=== PATIENT | male | born 1940 | race Caucasian/White ===

== ENCOUNTER → 2016-08-16 | Outpatient (CLI) | payer MEDICARE, BC ==
[~2016-08-16] MED LIST: ASPIRIN EC81 MG PO; CARDURA8 MG PO; CPAP INH; LIPITOR40 MG PO; METFORMIN HCL500 MG PO; PRINIVIL (ZESTRI5 MG PO; PROTONIX40 MG PO
== END | disposition disaster alternative care site (69) ==
LOC: LGSMG 09:48
DX: I25.10 Atherosclerotic heart disease of native coronary artery without angina pectoris (principal); E11.65 Type 2 diabetes mellitus with hyperglycemia; I10 Essential (primary) hypertension

== ENCOUNTER → 2016-08-26 | Outpatient (CLI) | payer MEDICARE, BC ==
--- NOTE | ~2016-08-26 | ESTC ---
Cardiac Perfusion Imaging Demographics Patient Name MIQUEL Jolley Gender Male Patient Number [id number] Race Visit Number [id number] Ethnicity [employer] ID Room Number Accession Number [id number] Height 65 inches Date of 1940 Weight 210 pounds A Interpreting Pablo Villagomez Date of study 08/26/2016 Physician Mustapha Barry MD Supervising /MLP Rodriguez CARTY Technologist Herbert Estrada Ordering Physician Stress hvac operations technician Stress ECG Reading [facility] Nurse Sarah Blackman Physician A RN The procedure was explained in detail to the patient. Risks, complications and alternative treatments were reviewed. Written consent was obtained. Medications Reviewed with Patient prior to Procedure. Procedure Procedure Type: Nuclear Stress Test:Pharmacological, Cardiolite Stress Test Procedure Start time: 08/26/2016 09:00 Indications: History of CAD and Angina. Risk Factors The patient risk factors include:prior PCI;cerebrovascular disease, family history of premature CAD, orally-treated diabetes mellitus and prior GA . Conclusions Summary This nuclear part of stress was assigned today for me to read. Impression ECG portion of the lexiscan stress test is clinically negative for ischemia by diagnostic criteria. Myocardial perfusion imaging is mildly abnormal. The images reveal a mostly fixed defect in the entire inferior wall suggestive of soft tissue attenuation. No evidence of convincing ischemia. Inferior wall thickens well on functional analysis. Overall left ventricular systolic function was normal. Calculated LVEF is 64% and TID ratio is 1.09. Stress Protocols Resting ECG Normal sinus rhythm. Pre-stress physical exam: Patient assessed by Dr Shah prior to testing. Stress Protocol:Pharmacologic Predicted HR: 145 bpm ECG Findings No ECG changes suggestive of ischemia. Arrhythmias No rhythm abnormality. Symptoms No symptoms with Lexiscan infusion. Stress Interpretation Appropriate hemodynamic response to Lexiscan. No significant ST-T wave changes with Lexiscan. ECG portion is negative for ischemia by diagnostic criteria. Imaging Results Summed scores - Summed stress score: 13 - Summed rest score: 8 - Summed difference score: 5 Stress ejection Ejection fraction:64 % EDV :97 ml ESV :35 ml Stroke volume :62 ml LV mass :131 gr Imaging Protocols Rest Stress Isotope:Tc99m Sestamibi IV Isotope: Tc99m Sestamibi IV Isotope dose:14.5 mCi Isotope dose:45.5 mCi Date:08/26/2016 07:32 Date:08/26/2016 09:27 Technique: SPECT Technique: Gated Supine SPECT Supine Scan Time:45-60 minutes post Scan Time:45-60 minutes post injection injection Procedure Medications - Regadenoson (Lexiscan) 0.4 mg IV over 10-15 sec. I.V. 0.4 mg. Medical History Admission Data Admission date: 08/26/2016 Admission Time: 07:07 Hospital Status: Outpatient. Signatures dtt: Kanika Shah dtd: 08/26/16 0900 Physician Self Edit
== END | disposition disaster alternative care site (69) ==
LOC: GRAD 07:07
DX: I25.10 Atherosclerotic heart disease of native coronary artery without angina pectoris (principal); I20.9 Angina pectoris, unspecified; I50.30 Unspecified diastolic (congestive) heart failure; I25.2 Old myocardial infarction; E11.9 Type 2 diabetes mellitus without complications; I67.9 Cerebrovascular disease, unspecified; Z98.61 Coronary angioplasty status; Z82.49 Family history of ischemic heart disease and other diseases of the circulatory system
CPT/HCPCS: A9500; J2785

== ENCOUNTER 2016-09-26 06:10 | Outpatient (CLI) | payer MEDICARE, BC ==
[~2016-09-26] VITALS: Ht 170.2 cm; Wt 91.1 kg
--- NOTE | ~2016-09-26 | CATH ---
Cardiac Diagnostic Report Demographics Patient Name MIQUEL Jolley Gender Male Date of 1940 Age 75 year(s) Patient Number [id number] Date of Study 09/26/2016 Visit Number [id number] Room Number G63[address] [place] [id number] Ht 175.26 cm Wt 91.1 kg Referring Maisha Alvarez MD Primary Physician Physician Performing Efstratiou Secondary Physician Physician Dahlia Luciano MD Diagnostic Efstratiou Assisting Physician Physician Dahlia Luciano MD Interventional Physician Construction Foreman Physician Findings and Conclusions Diagnostic Findings and Conclusion Patent previous stents to proximal RCA and proximal LAD Diagnostic Recommendations Continue medical therapy Procedure Description The patient was brought to the diagnostic cardiac catheterization-EP laboratory in the fasting, non-sedated state. Informed consent was obtained in the written and verbal form after the risks and benefits were explained. The patient had no further questions and agreed to proceed. The planned puncture-incision site(s) were shaved and prepped with ChloraPrep and draped in the usual sterile manner. Conscious sedation, supplemental oxygen, and pain control medications were delivered by a registered nurse under physician guidance. Surface ECG rhythm, blood pressure measurement, and pulse oximetry were monitored throughout the procedure. Arterial access. The access site was infiltrated with lidocaine. The vessel was entered with the Seldinger technique. A sheath was advanced into the vessel and used for catheter placement. Selective left coronary angiography. A catheter was advanced into the left coronary vessel ostium under Fluoroscopic guidance. Contrast was injected by hand. Images were obtained in multiple projections. Selective right coronary angiography. A catheter was advanced into the right coronary vessel ostium under fluoroscopic guidance. Contrast was injected by hand. Images were obtained in multiple projections. Left heart catheterization. A catheter was advanced across the aortic valve to the left ventricle under fluoroscopic guidance. Resting hemodynamics were obtained. Arterial artery hemostasis was achieved. The patient was transferred to a regular nursing floor via cart accompanied by a nurse. The patient left the laboratory in stable condition. Diagnostic Cath Status: Elective Procedure Procedure Type Diagnostic procedure:Angiography:, Coronary Angios w/[facility] Indications: Abnormal cardiolyte. The procedure was explained in detail to the patient. Risks, complications and alternative treatments were reviewed. Written consent was obtained. Medications Reviewed with Patient prior to Procedure. Angiographic Findings Dominance: Right Cardiac Arteries and Lesion Findings LMCA: Normal (0% Stenosis). LAD: Normal (0% Stenosis) and Abnormal.patent proximal stent Diag 20% ostialThere is a previous stent on Prox LAD Proximal subsection showing wide patency. Lesion on 1st Diag: Ostial.20% stenosis . LCx: Abnormal.patent OM 20% ostial Lesion on 1st Ob Starla: Ostial.20% stenosis . RCA: Abnormal.Patent proximal stentThere is a previous stent on Prox RCA Proximal subsection showing wide patency. Coronary Tree Procedure Data Procedure Date Date: 09/26/2016Start: 08:20 AMEnd: 08:36 AM Entry Locations - Retrograde Percutaneous access was performed through the Right Radial artery (Primary location). A 6 Fr sheath was inserted. Hemostasis was successfully obtained using Mechanical Compression. Closure Comments: R band with 16 cc air, deployed by Sebastien. Procedure Medications Order and Administration + + +-------+-------+ !Time !Medication !Dosage !Route ! + + +-------+-------+ !09/26/2016 !Versed !1 mg !I.V. ! !08:17 AM ! ! ! ! + + +-------+-------+ !09/26/2016 !Fentanyl !50 mcg !I.V. ! !08:17 AM ! ! ! ! + + +-------+-------+ !09/26/2016 !PAE Radial Cocktail: Heparin 5000 units, ! !I.A. ! !08:21 AM !Nitroglycerin 200mcg, Verapamil 3 mg ! ! ! ! !(ACC_3) ! ! ! + + +-------+-------+ Devices Used - A6 Fr. BS JR 4 Diag. Catheterwas used for:Right coronary angiography. - A6 Fr. BS JL 3.5 Diag. Catheterwas used for:Left coronary angiography. Contrast Material - Isovue 534370 ml Fluoroscopy Time: Diagnostic: 3:00 minutes. Total: 3:00 minutes. Fluoroscopy Dose: Diagnostic: 921 mGy. Total: 921 mGy. Estimated Blood Loss: 10 ml. Medical History Allergies - No known allergies. Risk Factors The patient risk factors include:prior PCI on 09/29/2006;obesity, cerebrovascular disease, physical activity, treated hypercholesterolemia, treated hypertension, family history of premature CAD, orally-treated diabetes mellitus, last creatinine: 1.2 mg/dl, creatinine clearance: 68.54 ml/min, dyslipidemia and prior [place] . Admission Data Admission Date: 09/26/2016 Admission Time: 06:10 AM Admit Source: Other Insurance Payors: Medicare. Admission Medications + +------+------+ + + + + !Medication !Dosage!Times !Last !Last !Administered !Comments ! ! ! !Per !Delivery !Delivery ! ! ! ! ! !Day !Date !Time ! ! ! + +------+------+ + + + + !Aspirin ! ! ! ! ! ! ! !(any) ! ! ! ! ! ! ! + +------+------+ + + + + !CISCO ! ! ! ! ! ! ! !Inhibitor ! ! ! ! ! ! ! !(any) ! ! ! ! ! ! ! + +------+------+ + + + + !Statin (any)! ! ! ! ! ! ! + +------+------+ + + + + Clinical Evaluation Leading to Procedure - The patient's CAD presentation was assessed as: Unstable angina. - The patient's anginal syndrome during the past two weeks was assessed as: Class III according to the [place] Cardiovascular Society Classification System (CCS). [facility] Ventriculography Findings stress positive inferior defect Snapshots Hemodynamics Condition: Rest O2 Consumption: Estimated: 243.43Heart Rate: 77 bpm Pressures (mmHg) +-----+ + !Site !Pressure ! +-----+ + !LV !113/-2 ,8 ! +-----+ + !LV !116/-3 ,7 ! +-----+ + !AO !114/54 (76) ! +-----+ + !LV !117/-3 ,7 ! +-----+ + !AO !103/58 (78) ! +-----+ + Valve Gradients and Areas + +---------+---------+---------+ +---------+ + !Valve !Peak !Mean !Area !Index !Flow !Source ! + +---------+---------+---------+ +---------+ + !Aortic !0 !0 ! ! ! ! ! + +---------+---------+---------+ +---------+ + !Aortic !0 !0 ! ! ! ! ! + +---------+---------+---------+ +---------+ + Shunts Oxygen Values O2 Capacity 182.24 O2 Consumption 243.43 Discharge Data Discharge Date: 09/26/2016 Hospital Status: Outpatient Signatures dtt: Kanika Shah dtd: 09/26/16819 Physician Self Edit
[2016-09-26 07:03] LABS: BASOPHIL % 0.7 %; EOSINOPHIL # 0.2 K/uL (0.0-0.5); EOSINOPHIL % 3.1 %; HEMATOCRIT 37.3 % (37.0-53.0); HEMOGLOBIN 13.4 g/dL (11.0-16.0); IMMATURE GRANULOCYTE % 0.2 %; LYMPHOCYTE # 1.4 K/uL (0.8-4.0); LYMPHOCYTE % 25.2 %; MCH 31.3 pg (27.0-34.0); MCHC 35.9 gm/dL (32.0-36.5); MCV 87.1 fl (83.0-98.0); MONOCYTE # 0.5 K/uL (0.0-1.0); MONOCYTE % 8.7 %; MPV 9.3 fl (9.4-12.4); NEUTROPHIL # (ANC) 3.4 K/uL (1.4-9.0); NEUTROPHIL % 62.1 %; NRBC % 0 /100WBC (0-0.00); PLATELET COUNT 249 K/uL (150-450); RBC 4.28 M/uL (3.50-5.50); RDW-CV 13.1 % (11.9-14.6); WBC 5.4 K/uL (4.0-11.0)
[2016-09-26 07:11] LABS: INR - (THERAPEUTIC) 0.95 (0.92-1.07)
[2016-09-26 07:26] LABS: ALBUMIN 3.7 gm/dL (3.5-5.0); ANION GAP 12.8 (10.0-19.0); CALCIUM 8.6 mg/dL (8.5-10.5); CREATININE 1.2 mg/dL (0.6-1.3); POTASSIUM 3.8 mMol/L (3.7-5.1); TOTAL BILIRUBIN 0.8 mg/dL (0.0-1.5); TOTAL PROTEIN 6.8 g/dL (6.0-8.4)
== END 2016-09-26 12:00 | disposition disaster alternative care site (69) ==
LOC: GPCU 06:10 → GPOC 06:10
PROVIDERS: Internal Medicine Cardiovascular Disease
PROC: 4A023N7 Measurement of Cardiac Sampling and Pressure, Left Heart, Percutaneous Approach (ICD-10-PCS; principal; 2016-09-26)
PROC: B216YZZ Fluoroscopy of Right and Left Heart using Other Contrast (ICD-10-PCS; 2016-09-26)
DX: I25.110 Atherosclerotic heart disease of native coronary artery with unstable angina pectoris (principal); R00.1 Bradycardia, unspecified
CPT/HCPCS: C1894; J1644; J2001; J2250; J3010; J7030

== ENCOUNTER → 2016-10-17 | Outpatient (CLI) | payer MEDICARE, BC | LOC: GNUT 08:42 | DX: E11.65 Type 2 diabetes mellitus with hyperglycemia (principal) ==